=== PATIENT | female | born 1985 | race Caucasian/White ===

== ENCOUNTER 2016-12-15 15:58 | Emergency (ER) | payer OTHER ==
--- NOTE | ~2016-12-15 | CR229 ---
[facility] A Service of [facility] & [facility] RADIOLOGY TEXT RESULTS PATIENT: HASMUKH STEVEN LOCATION: [facility]FT[facility] : 85 UNIT #: [id number] AGE: [address]: Imani Adame SEX: F ORDER DR: [id number] [facility] [address] [place], [place] [address] [id number] MR#: [id number] Acc #: [id number] NAME: HASMUKH STEVEN : 1985 SEX: F STUDY DATE/TIME: 12/15/2016 16:09 UNIT: [facility] ROOM: STUDY DESCRIPTION: CR Shoulder Min 2 View Lt Attending Physician: Imani Adame Pa-C Ordering Physician: Imani Adame Pa-C Primary Care Physician: Patrick Khalil M.D. MEDICAL IMAGING REPORT This report is preliminary unless electronic signature is present EXAM Left shoulder, 12/15 INDICATIONS Shoulder pain radiating to the elbow that started yesterday after lifting boxes at work. FINDINGS 3 views of the left shoulder were obtained. There is no fracture or dislocation. There is no AC joint separation. IMPRESSION Normal left shoulder. Dictated by... Arden Hahn Jr., M.D. THIS IS AN ELECTRONICALLY VERIFIED REPORT Arden Hahn Jr., M.D. at 12/16/2016 9:49 AM DAYANARA/tiffany TD: 12/16/2016 00:32 JOB #: [id number] MEDICAL IMAGING REPORT Page 1 of 1 COPY
[~2016-12-15 15:58] MED LIST: PHENERGAN PO; PRENATAL VITAMI1 TA3 PO; ZOFRANODT PO
[2017-03-31] MEDS ORDERED: KEPPRA500 MG PO (09:08)
[2017-03-31] MEDS ORDERED: HYDROXYZINE HCL50 MG PO (09:08)
== END 2016-12-15 16:55 | disposition home or self-care (01) ==
LOC: CFTX 15:58
DX: S46.212A Strain of muscle, fascia and tendon of other parts of biceps, left arm, initial encounter (principal); F41.9 Anxiety disorder, unspecified; X50.0XXA Overexertion from strenuous movement or load, initial encounter; Y92.69 Other specified industrial and construction area as the place of occurrence of the external cause; Y99.0 Civilian activity done for income or pay
CPT/HCPCS: 73030; 99283

== ENCOUNTER 2017-03-08 12:28 | Emergency (ER) | payer OTHER ==
[2017-03-08 14:25] LABS: BASOPHIL% 0.7 % (0-2.5); EOSINOPHIL# 0.1 X10e3 (0-0.7); EOSINOPHIL% 2.2 % (0.0-7.0); HEMOGLOBIN 13.8 gm/dL (12.0-16.0); LYMPHOCYTE# 1.7 X10e3 (1.0-3.5); LYMPHOCYTE% 28.9 % (17.0-45.0); MEAN CELL VOLUME 82.8 FL (83-96); MEAN CORPUSCULAR HEMOGLOBIN 27.9 PG (28-34); MEAN CORPUSCULAR HGB CONC 33.7 g/dL (30-36); MEAN PLATELET VOLUME 8.9 FL (6.5-11.5); MONOCYTE# 0.5 X10e3 (0-1.0); NEUTROPHIL# 3.6 X10e3 (1.5-7.1); NEUTROPHIL% 60.2 % (40-75); PLATELET COUNT 173 X10e3 (140-420); RED BLOOD COUNT 4.95 X10e (3.90-5.30)
[2017-03-08 14:29] LABS: DIFF IND NO
[2017-03-08 15:08] LABS: ALBUMIN SERUM 4.1 g/dL (3.5-5.0); BILIRUBIN, DIRECT 0.1 mg/dL (0.0-0.2); BILIRUBIN,INDIRECT 0.5 mg/dL (0.0-0.9); BILIRUBIN,TOTAL 0.6 mg/dL (0.2-2.0); CALCIUM SERUM 8.9 mg/dL (8.4-10.2); CREATININE SERUM 0.6 mg/dL (0.6-1.4); GLOM FILT RATE Estimated 121.5 mL/min (>60); POTASSIUM 3.6 mmol/L (3.5-5.1); PROTEIN TOTAL SERUM 6.9 g/dL (6.0-8.3)
[2017-03-08 15:27] LABS: URINE SOURCE CLEAN CATCH
[2017-03-08 15:31] LABS: URINE APPEARANCE CLEAR; URINE BILIRUBIN NEG (NEG); URINE BLOOD 1+ (NEG); URINE COLOR YELLOW; URINE GLUCOSE NEG (NEG); URINE KETONE NEG (NEG); URINE LEUKOCYTE ESTERASE 3+ (NEG); URINE NITRATE NEG (NEG); URINE PROTEIN NEG (NEG); URINE SPECIFIC GRAVITY 1.011 (1.003-1.035); URINE UROBILINOGEN 0.2 MG/DL (NEG)
[2017-03-08 15:33] LABS: CULTURE INDICATED? YES; URBCS1 AUWI 0-2 /[HPF] (0-2); URINE BACTERIA AUWI 2+ (NEGATIVE); URINE SQUAMOUS EPITHELIAL CELL FEW /[HPF]; UWBCS1 AUWI 25-50 (0-5)
[2017-03-08 15:47] LABS: AMPHETAMINE NEG (NEG); BARBITURATES NEG (NEG); BENZODIAZEPINES NEG (NEG); COCAINE NEG (NEG); MARIJUANA NEG (NEG); OPIATES NEG (NEG); TRICYCLIC ANTIDEPRESSANTS NEG (NEG); U METHADONE NEG (NEG)
[2017-03-31] MEDS ORDERED: HYDROXYZINE HCL50 MG PO (09:08)
[2017-03-31] MEDS ORDERED: KEPPRA500 MG PO (09:08)
== END 2017-03-08 16:25 | disposition home or self-care (01) ==
LOC: CED 12:28
PROVIDERS: Student in an Organized Health Care Education/Training Program
DX: N39.0 Urinary tract infection, site not specified (principal); G40.909 Epilepsy, unspecified, not intractable, without status epilepticus; Z88.8 Allergy status to other drugs, medicaments and biological substances; Z98.890 Other specified postprocedural states
CPT/HCPCS: 36415; 80048; 80076; 80307; 81003; 83690; 84703; 85025; 87086; 96365; 96375; 99284; C9113; J0696; J1170; J2405

== ENCOUNTER → 2017-03-23 | Outpatient (CLI) | payer OTHER ==
[~2017-03-23] MED LIST changes: +HYDROXYZINE HCL50 MG PO; +KEPPRA500 MG PO
--- NOTE | ~2017-03-23 | US5 ---
[facility] A Service of [facility] & [facility] RADIOLOGY TEXT RESULTS PATIENT: HASMUKH STEVEN LOCATION: [facility] : 85 UNIT #: [id number] AGE: [address]: Arden Ferreira MD SEX: F ORDER DR: [id number] [place] [address] [place], [place] [address] [id number] O MR#: [id number] Acc #: [id number] NAME: HASMUKH STEVEN : 1985 SEX: F STUDY DATE/TIME: 03/23/2017 10:37 UNIT: [facility] ROOM: STUDY DESCRIPTION: US Abdominal Complete Attending Physician: Arden Ferreira M.D. Referring Physician: Arden Ferreiar M.D. Ordering Physician: Arden Ferreira M.D. Primary Care Physician: Patrick Khalil M.D. MEDICAL IMAGING REPORT This report is preliminary unless electronic signature is present EXAM Abdominal ultrasound complete 03/23/2017 HISTORY Abdomen pain, nausea and vomiting for 9 months. FINDINGS The liver is homogeneous in echotexture and demonstrates no cystic or solid mass lesions. The intra and extrahepatic bile ducts are not dilated. The gallbladder contains multiple shadowing gallstones but there is no evidence of gallbladder wall thickening or pericholecystic fluid. Common duct measures 3 mm. The pancreas is normal. The spleen measures 13.5 cm in greatest diameter. Visualized portions of the abdominal aorta and inferior vena cava are within normal limits. The kidneys are normal bilaterally. IMPRESSION 1. Cholelithiasis. 2. Splenomegaly. Dictated by... Morro Diaz M.D. THIS IS AN ELECTRONICALLY VERIFIED REPORT Morro Diaz M.D. at 03/25/2017 6:17 AM NATHAN/sonali TD: 03/24/2017 10:15 JOB #: [id number] MEDICAL IMAGING REPORT Page 1 of 1 COPY
== END | disposition home or self-care (01) ==
LOC: CGUS 10:04
DX: R10.11 Right upper quadrant pain (principal); K80.20 Calculus of gallbladder without cholecystitis without obstruction; R16.1 Splenomegaly, not elsewhere classified
CPT/HCPCS: 76700

== ENCOUNTER → 2017-04-09 | Day surgery (SDC) | payer OTHER ==
--- NOTE | ~2017-04-09 | OR ---
Unit #: [id number] #: [id number] Patient: HASMUKH STEVEN [id number] [address] [place], [place] [address] [id number] O MR#: [id number] NAME: HASMUKH STEVEN ROOM: Date of Procedure: 04/09/2017 Admission Date: 04/09/2017 Surgeon: Arden Ferreira M.D. : 1985 Attending Physician: Arden Ferreira M.D. Referring Physician: Arden Ferreira M.D. Primary Care Physician: Patrick Khalil M.D. OPERATIVE REPORT PREOPERATIVE DIAGNOSES Chronic cholecystitis and cholelithiasis. POSTOPERATIVE DIAGNOSES Chronic cholecystitis and cholelithiasis. PROCEDURE PERFORMED Laparoscopic cholecystectomy. ANESTHESIA General endotracheal anesthesia. ESTIMATED BLOOD LOSS Less than 20 mL. INDICATIONS FOR PROCEDURE A 31-year-old female with postprandial nausea and right upper quadrant pain radiating to the back. Ultrasound revealed cholelithiasis with normal biliary ductal system. Preoperative liver chemistries were normal. DESCRIPTION OF PROCEDURE The patient was admitted to [facility], positively identified, and transported to the operating room, and after induction of general endotracheal anesthesia, she received IV antibiotics per SCIP protocol, and was prepped and draped in usual sterile fashion. A 5-mm supraumbilical incision was made. Veress needle was placed. Pneumoperitoneum was created. Then, a 5-mm trocar was placed. Laparoscope was introduced into peritoneal cavity under direct vision. The epigastric and lateral ports were placed. Gallbladder was grasped and elevated. Adhesions were taken down using sharp and blunt dissection and then, the infundibulum was retracted laterally. [place] was dissected out, clearly identifying the cystic duct, gallbladder, and cystic duct-common duct junction. The cystic duct was swept upwards and then a single clip was placed in the cystic duct centered to gallbladder and 3 clips were placed distally and the cystic duct was sharply divided. Posteriorly, the cystic artery was doubly clipped proximally and distally and divided. I then dissected the gallbladder out of liver bed using cautery dissection. Once it was freed up from its hepatic attachments, it was brought out through the epigastric port. There was no spillage of bile or stones. The clips were well positioned. There was excellent hemostasis. The epigastric fascial defect was closed using a neoClose device and the closure was airtight. I then reduced the pneumoperitoneum Unit #: [id number] #: [id number] Patient: HASMUKH STEVEN as I removed the laparoscope and the remaining trocars. 0.5% Marcaine with epinephrine was infiltrated in each trocar sites. Skin was closed with 4-0 Monocryl subcuticular closure and Dermabond skin adhesive. Sponges and needle counts were correct x3. The patient transported to recovery in stable condition. Findings and postoperative instructions were discussed with her family. Dictated by... Nerissa Rodriguez/lay TD: 04/10/2017 02:00 JOB #: [id number] OPERATIVE REPORT Page 1 of 1 X Arden Ferreira MD PROCEDURE OPERATIVE NOTE
[2017-04-09 10:15] LABS: HEMATOCRIT 42.5 % (35.0-45.0); HEMOGLOBIN 14.5 gm/dL (12.0-16.0); MEAN CELL VOLUME 82.3 FL (83-96); RED BLOOD COUNT 5.16 X10e (3.90-5.30); WHITE BLOOD COUNT 6.1 X10e3 (4.0-10.5)
[2017-04-09 10:45] LABS: ALBUMIN SERUM 4.3 g/dL (3.5-5.0); BILIRUBIN,TOTAL 1.2 mg/dL (0.2-2.0); CALCIUM SERUM 9.1 mg/dL (8.4-10.2); CREATININE SERUM 0.7 mg/dL (0.6-1.4); GLOM FILT RATE Estimated 115.5 mL/min (>60); POTASSIUM 3.6 mmol/L (3.5-5.1); PROTEIN TOTAL SERUM 7.4 g/dL (6.0-8.3)
== END | disposition home or self-care (01) ==
LOC: CSUR 09:04
PROVIDERS: Specialist
DX: K80.10 Calculus of gallbladder with chronic cholecystitis without obstruction (principal); Z97.5 Presence of (intrauterine) contraceptive device; Z91.09 Other allergy status, other than to drugs and biological substances
CPT/HCPCS: 80053; 84703; 85027; 88304; J0131; J0330; J0690; J1100; J1885; J1953; J2250; J2405; J2710; J3010